=== PATIENT | male | born 1960 | race Caucasian/White ===

== ENCOUNTER 2025-01-31 09:40 | Day surgery (SDC) | payer BC ==
[2025-01-30 11:09] VITALS: BMI 25.8
[2025-01-31] MEDS: IV FLUID CONTINUATION 1,000 ML IV ONE (09:57)
[2025-01-31 10:15] VITALS: TEMP 98
[2025-01-31] MEDS: LACTATED RINGERS 1,000 ML IV SCH (10:16)
[2025-01-31] MEDS ORDERED: PROPOFOL 10 MG/ML 20 ML VIAL IV ONE (10:43)
--- NOTE | 2025-01-31 11:04 | P.PCN ---
Date of Procedure: 01/31/25 Procedure(s) Performed: BRIEF HISTORY: Patient is a 64-year-old pleasant white male scheduled for an elective colonoscopy as a part of screening for colon cancer. PROCEDURE PERFORMED: Colonoscopy with biopsy. PREOPERATIVE DIAGNOSIS: Screening for colon cancer. IV sedation per Anesthesia. PROCEDURE: After informed consent was obtained, the patient, was brought into the endoscopy unit. IV sedation was administered by Anesthesia under continuous monitoring. Digital rectal examination was normal. Initially the Olympus CF-160 flexible video colonoscope was then inserted in the rectum, gradually advanced into the cecum without any difficulty. Careful examination was performed as the scope was gradually being withdrawn. Ileocecal valve and the appendiceal orifice were visualized and appeared normal. Prep was excellent. Mucosa of the cecum, had a 3 mm sessile polyp removed by cold biopsy. Ascending colon, transverse colon, descending colon, sigmoid colon, and rectum appeared normal. Rectum there was a 5 mm polyp removed by cold biopsy. Retroflexion was performed in the rectum and no lesions were seen. The patient tolerated the procedure well. IMPRESSION: 3 mm cecal polyp status post cold biopsy 5 mm rectal polyp status post cold biopsy RECOMMENDATIONS: Findings of this examination were discussed with the patient as well as his family. He was advised to follow-up with the biopsy results. If the biopsy reveals adenoma he can have repeat colonoscopy in 5 years.
[2025-01-31 11:29] VITALS: BP 126/82; PULSE 50; RESP 16
== END 2025-01-31 11:39 | disposition home or self-care (01) ==
LOC: ORWHC2ENDO 09:40
PROVIDERS: ATTEND Internal Medicine Gastroenterology
DX: Z12.11 Encounter for screening for malignant neoplasm of colon (principal); D12.0 Benign neoplasm of cecum; K62.1 Rectal polyp
CPT/HCPCS: 88305; 45380; J2704